=== PATIENT | male | born 1960 | race Caucasian/White ===

== ENCOUNTER → 2017-04-21 | Day surgery (SDC) | payer OTHER ==
[~2017-04-21] MED LIST: ACETAMINOPHEN 1000 MG/100 ML 100 ML IV ONE; ACETAMINOPHEN/HYDROcodone 325 MG/5 MG TAB ONE; AMLO2.5T PO; ASPI-183 PO; ATOR80TA45 PO; BACT800T5 PO; CLON0.5T PO; DICL75TA PO; FLUTI110I INH; IMIT100T PO; LACTATED RINGER'S 1000 ML INJ 1,000 ML ONE; LAMO200T PO; MECL-62 PO; METO50TA PO; MIDAZOLAM HCL 2 MG/2 ML VIAL ONE; NEUR300C PO; NITR0.4S SL; NORC5TAB PO; OMEP20TA93 PO; ONDANSETRON HCL 4 MG/2 ML VIAL IV PUSH ONE; PROPOFOL 200 MG/20 ML AMP IV ONE; QUET1TAB7 PO; VENTAER INH; ceFAZolin INJ 1,000 MG VIAL ONE
--- NOTE | 2017-04-21 11:29 | TN ---
cc: ALFONSO GARCIA M.D., BRUNO, DR. DATE OF SURGERY: 04/21/2017 PREOPERATIVE DIAGNOSIS 1. Right inguinal hernia, symptomatic. 2. Lipoma to the low back, symptomatic. POSTOPERATIVE DIAGNOSIS 1. Right inguinal hernia, symptomatic. 2. Lipoma to the low back, symptomatic. PROCEDURE 1. Repair of indirect inguinal hernia right side with mesh. 2. Excision of 5-cm lipoma mass right lower back. ANESTHESIA General. SURGEON Dr. Garcia. INDICATION This is a pleasant gentleman who has symptomatic right inguinal hernia and painful lipoma in his right low back causing change in lifestyle. Plans were made for above. PROCEDURE The patient was taken to the operating room and placed in the supine position. After anesthesia his right groin is prepped with Betadine, after time-out was done, he was given preoperative antibiotics. We make an oblique incision overlying the external internal oblique, dissect down through Lashell's fascia And incise the external oblique aponeurosis identifying the internal/external ring We did dissect out to the external oblique aponeurosis which is incised. Cord structures were then surrounded with a [place] drain. Moderate-sized cord lipoma is removed. Once the cord lipoma is removed we then are able to reduce the hernia sac, open it up and no contents are contained, we twist upon itself and ligated with Vicryl suture. We then placed a piece of polypropylene mesh, securing it to the pubic tubercle, Aidan's ligament and the iliopubic tract out medially, all done with 0-Ethibond. Tails were fashioned and secured to themselves, the internal oblique aponeurosis. Once this was accomplished we then irrigate. There is excellent hemostasis. The ilioinguinal nerve is preserved. We then close the external oblique aponeurosis with 2-0 Vicryl, Lashell's with 3-0 Vicryl, skin with 4-0 Vicryl. We then removed the drapes, the patient is positioned in left lateral decubitus position so we can palpate this area on his low back that is symptomatic. We make an incision after prepping with Betadine, we make the incision over the previous scar where this palpable mass in his low back is located. We dissect down to this multilobulated fatty tissue that looks like a lipomatous structure from previous excision. There is some scar tissue. The entirety of it is removed. No other gross abnormalities seen. He does not have a lumbar hernia. After this was done we then closed the deep layer with a 2-0 Vicryl and skin is closed with 4-0 Vicryl. Steri-Strips were applied. Sterile bandage was applied. The patient tolerated the procedure well and had no immediate postop complications. Alfonso Garcia MD JDB/TLL /10:55 AM /11:09 AM MTDYoly
== END | disposition home or self-care (01) ==
LOC: ESDC 08:05
PROVIDERS: ATTEND Surgery
DX: K40.90 Unilateral inguinal hernia, without obstruction or gangrene, not specified as recurrent (principal); D17.1 Benign lipomatous neoplasm of skin and subcutaneous tissue of trunk
CPT/HCPCS: 00300; 00830; 21931; 49505; 88304; C1781; J0131; J0690; J2250; J2405; J3010; J7120; 88305

== ENCOUNTER 2017-06-19 05:56 | Emergency (ER) | payer OTHER ==
[~2017-06-19] VITALS: Ht 170.2 cm; Wt 91.5 kg
[~2017-06-19 05:56] MED LIST changes: -ACETAMINOPHEN 1000 MG/100 ML 100 ML IV ONE; -ACETAMINOPHEN/HYDROcodone 325 MG/5 MG TAB ONE; -ASPI-183 PO; +ASPI-516 CHEW; -BACT800T5 PO; +CIPR-9 PO; -CLON0.5T PO; +HYDR12.57 PO; -LACTATED RINGER'S 1000 ML INJ 1,000 ML ONE; +LEVO500T8 PO; +METF500T PO; +METO25TA3 PO; -METO50TA PO; -MIDAZOLAM HCL 2 MG/2 ML VIAL ONE; -ONDANSETRON HCL 4 MG/2 ML VIAL IV PUSH ONE; -PROPOFOL 200 MG/20 ML AMP IV ONE; -QUET1TAB7 PO; +TAMS5CAP PO; +ZOFR4TAB PO; -ceFAZolin INJ 1,000 MG VIAL ONE
[2017-06-19 06:00] VITALS: BP 139/79; PULSE 61; RESP 16; TEMP 98.2; O2SAT 97
[2017-06-19 06:19] LABS: BILIRUBIN, URINE NEG (NEG); BLOOD, URINE LARGE (NEG); GLUCOSE,URINE NEG (NEG); KETONE, URINE NEG (NEG); NITRITE,URINE NEG (NEG); URINE LEUKOCYTE ESTERASE NEG (NEG)
--- NOTE | 2017-06-19 06:23 | PD ---
HPI Chief Complaint: Complaint Time Seen by Provider: 06:09 Travel History International Travel<30 days: No Contact w/Intl Traveler<30days: No Traveled to known affect area: No History of Present Illness HPI The patient is a 56-year-old male that was sent from [place] emergency department because, according to the physician there, needed continuous bladder irrigation for hematuria. The patient waited in that the emergency department for about 5 hours before [facility] could taking over here. Apparently, in that time his urine cleared up completely. They never did put a catheter in him. He comes in voiding without any problem and has a chantel colored urine without any turbidity. He has only slight dysuria. He is currently taking Levaquin, Cipro and Flomax given to him by his primary care physician in [place]. PFSH Past Medical History Arthritis: Yes Bipolar Disorder: Yes Heart Rhythm Problems: Yes (OPEN HEART SURGERY 2014) Cardiac Catheterization: Yes Cardiovascular Problems: Yes (CAD, HTN, CABG, STENT) High Cholesterol: Yes Coronary Artery Disease: Yes Diabetes: Yes Patient Takes Glucophage: Yes Diminished Hearing: No Gastrointestinal Disorders: Yes (gerd) Hypertension: Yes Musculoskeletal: Yes (arthritis) Respiratory: Yes (copd) Migraines: Yes Seizures: Yes ?: Not Past Surgical History Abdominal Surgery: Yes (HERNIA) Cardiac Surgery: Yes (cabg) Cholecystectomy: Yes Coronary Artery Bypass Graft: Yes Joint Replacement: No Pacemaker: No Other Surgery: Yes (KIDNEY) Social History Alcohol Use: No Tobacco Use: Yes Substance Use: No Allergies-Medications (Allergen,Severity, Reaction): Coded Allergies: VIDAL Inhibitors (Verified Allergy, Severe, Swelling, 06/19/17) adhesive (Verified Allergy, Severe, rash, 06/19/17) ceftriaxone (Verified Allergy, Unknown, 06/19/17) Reported Meds & Prescriptions Reported Meds & Active Scripts Active Zofran (Ondansetron HCl) 4 Mg Tab 4 Mg PO Q6HR PRN [place] (Hydrocodone-Acetaminophen) 5 Mg-325 Mg Tab 1 Tab PO Q6H PRN Cipro (Ciprofloxacin HCl) 500 Mg Tab 500 Mg PO BID 7 Days Reported Flomax (Tamsulosin HCl) 0.4 Mg Cap 0.4 Mg PO HS Hydrochlorothiazide 12.5 Mg Cap 12.5 Mg PO DAILY Levofloxacin 500 Mg Tablet 500 Mg PO DAILY Metformin (Metformin HCl) 500 Mg Tab 500 Mg PO DAILY With a meal Metoprolol Tartrate 25 Mg Tab 25 Mg PO BID Aspirin 81 Mg Chew 162 Mg CHEW DAILY Meclizine (Meclizine HCl) 25 Mg Tab 25 Mg PO DIRECTED PRN Neurontin (Gabapentin) 300 Mg Cap 300 Mg PO BID Lamotrigine 200 Mg Tab 200 Mg PO DAILY Atorvastatin (Atorvastatin Calcium) 80 Mg Tab 80 Mg PO HS Flovent Hfa 12 GM Inh (Fluticasone Propionate) 110 Mcg/Act Inh 1 Puff INH BID PRN Ventolin Hfa 18 GM Inh (Albuterol Sulfate) 90 Mcg/Act Aer 2 Puff INH Q4-6H PRN Diclofenac Sodium DR (Diclofenac Sodium) 75 Mg Tabdr 75 Mg PO BID Imitrex (Sumatriptan Succinate) 100 Mg Tab 100 Mg PO ONCE PRN If a satisfactory response has not been obtained at 2 hours, a second dose may be administered Omeprazole 20 Mg Tab 20 Mg PO DAILY Nitrostat SL (Nitroglycerin) 0.4 Mg Subl 0.4 Mg SL DIRECTED PRN 1 tablet under the tongue as needed for chest pain. Repeat every 5 minutes for a total of 3 DOSES or call 911 if NO relief. Amlodipine (Amlodipine Besylate) 2.5 Mg Tab 2.5 Mg PO DAILY Review of Systems Except as stated in HPI: all other systems reviewed are Neg Physical Exam Narrative GENERAL: The patient is alert, oriented 3 in minimal apparent distress with his right flank pain and urinary symptoms. His vital signs are normal. SKIN: Focused skin assessment warm/dry. HEAD: Atraumatic. Normocephalic. EYES: Pupils equal and round. No scleral icterus. No injection or drainage. ENT: No nasal bleeding or discharge. Mucous membranes pink and moist. NECK: Trachea midline. No JVD. CARDIOVASCULAR: Regular rate and rhythm. No murmur appreciated. RESPIRATORY: No accessory muscle use. Clear to auscultation. Breath sounds equal bilaterally. GASTROINTESTINAL: Abdomen soft, non-tender, nondistended. Hepatic and splenic margins not palpable. MUSCULOSKELETAL: No obvious deformities. No clubbing. No cyanosis. No edema. NEUROLOGICAL: Awake and alert. No obvious cranial nerve deficits. Motor grossly within normal limits. Normal speech. PSYCHIATRIC: Appropriate mood and affect; insight and judgment normal. Data Data Last Documented VS Vital Signs Date Time Temp Pulse Resp B/P (MAP) Pulse Ox O2 Delivery O2 Flow Rate FiO2 06/19/17 06:00 98.2 61 16 139/79 (99) 97 Orders Orders Urinalysis - C+S If Indicated (06/19/17 06:09) Labs Laboratory Tests Test 06/19/17 06:00 Urine Color YELLOW Urine Turbidity CLEAR Urine pH 6.0 Urine Specific Center 1.027 Urine Protein NEG mg/dL Urine Glucose (UA) NEG mg/dL Urine Ketones NEG mg/dL Urine Occult Blood LARGE Urine Nitrite NEG Urine Bilirubin NEG Urine Leukocyte Esterase NEG Urine RBC 10-14 /hpf Urine WBC 6-8 /hpf Urine Squamous Epithelial Cells 0-5 /hpf Urine Bacteria NONE /hpf Microscopic Urinalysis Comment CULT NOT INDICATED MDM Medical Decision Making Medical Screen Exam Complete: Yes Emergency Medical Condition: Yes Medical Record Reviewed: Yes Interpretation(s) The urine shows clear, specific gravity 1.027, large occult blood with 10-14 red cells and 6-8 white cells and culture is not indicated. Differential Diagnosis Bloody urine with clots needing continuous bladder irrigation, clear urine not needing any treatment other than continuing his antibiotics, urinary tract infection eating change in antibiotics Narrative Course The patient has a fairly normal urine and certainly does not need any bladder irrigation or even a Enriquez catheter. He is urinating fine on his own. He needs to follow-up with his primary care physician in [place] and his urologist in [place]. Diagnosis Primary Impression: UTI (urinary tract infection) Additional Instructions: It appears that your hematuria has resolved and you certainly do not need any Enriqeuz catheter or any bladder irrigation. Follow-up with your urologist in [place]. Also follow-up with your primary care physician in [place]. Continue your antibiotics as prescribed by her primary care physician. Med/Other Pt SpecificInfo: No Change to Meds Disposition: 01 DISCHARGE HOME Condition: Serious Maximino Disla MD Jun 19, 2017 06:23
[2017-06-19 06:27] LABS: URINE COLOR YELLOW (YELLW/STRAW)
[2017-06-19 06:28] LABS: SQUAMOUS EPITHELIAL CELL URINE 0-5 /hpf (0-5)
[2017-06-19] MEDS ORDERED: IBUP1TAB7 PO (06:57)
[2017-06-19] MEDS ORDERED: KETOROLAC TROMETHAMINE 60 MG/2 ML (IM) VIAL IVP ONE (07:00)
[2017-06-19 07:06] VITALS: BP 119/69
== END 2017-06-19 07:10 | disposition home or self-care (01) ==
LOC: PHED 05:56
DX: N39.0 Urinary tract infection, site not specified (principal); F31.9 Bipolar disorder, unspecified; E78.00 Pure hypercholesterolemia, unspecified; E11.9 Type 2 diabetes mellitus without complications; I10 Essential (primary) hypertension; K21.9 Gastro-esophageal reflux disease without esophagitis; I25.10 Atherosclerotic heart disease of native coronary artery without angina pectoris; J44.9 Chronic obstructive pulmonary disease, unspecified; Z72.0 Tobacco use
CPT/HCPCS: 80053; 81001; 83605; 85025; 96372; 96374; 96375; 99284; 99285; J1885; J2270; J2405